=== PATIENT | female | born 1970 | race Caucasian/White ===

== ENCOUNTER → 2023-09-12 08:52 | Outpatient (REF) | payer BC, SELFPAY | LOC: HWRAD 08:52 | PROVIDERS: ATTENDING PHYSICIAN Nurse Practitioner Family | DX: R10.9 Unspecified abdominal pain (principal) | CPT/HCPCS: 74177; Q9967 ==

== ENCOUNTER → 2023-10-13 10:57 | Outpatient (REF) | payer BC, SELFPAY ==
[2023-10-13 16:02] LABS: Free T4 1.06 ng/dl (0.78-2.19)
[2023-10-13 16:16] LABS: TSH 1.55 uIU/ml (0.47-4.68)
== END ==
LOC: HWWDC 10:57
PROVIDERS: ATTENDING PHYSICIAN Obstetrics & Gynecology; FAMILY PHYSICIAN Nurse Practitioner Family; REFERRING PHYSICIAN Internal Medicine Endocrinology, Diabetes & Metabolism
DX: Z12.31 Encounter for screening mammogram for malignant neoplasm of breast (principal); E03.9 Hypothyroidism, unspecified
CPT/HCPCS: 36415; 77063; 77067; 84439; 84443

== ENCOUNTER → 2023-10-20 06:37 | Day surgery (SDC) | payer BC, SELFPAY | LOC: GI 06:37 | PROVIDERS: ATTENDING PHYSICIAN Internal Medicine Gastroenterology; FAMILY PHYSICIAN Nurse Practitioner Family | DX: R10.12 Left upper quadrant pain (principal); K22.89 Other specified disease of esophagus; K31.89 Other diseases of stomach and duodenum; K31.7 Polyp of stomach and duodenum; K29.50 Unspecified chronic gastritis without bleeding; R59.0 Localized enlarged lymph nodes | CPT/HCPCS: 43239; 88305; 88341; 88342 ==

== ENCOUNTER → 2024-01-26 07:12 | Outpatient (REF) | payer BC, SELFPAY ==
[2024-01-26 09:30] LABS: % Basophils 0.6 % (0-2); % Eosinophils 2.2 % (0-6); % Immature Granulocytes 0.6 % (0-0.5); % Lymphocytes 29.5 % (20.5-51.1); % Monocytes 10.9 % (1.7-9.3); % Neutrophils 56.2 % (42.2-75.2); Absolute Eosinophils 0.1 10^3/uL (0-0.7); Absolute Lymphocytes 1.6 10^3/uL (1.2-3.4); Absolute Monocytes 0.6 10^3/uL (0.1-0.6); Absolute Neutrophils 3.1 10^3/uL (1.4-6.5); Hematocrit 40.2 % (37.0-47.0); Hemoglobin 13.5 g/dL (12.0-16.0); Mean Corp Hgb Conc. 33.6 g/dL (33.0-37.0); Mean Corpuscular Hgb 31.3 pg (27.0-31.0); Mean Corpuscular Volume 93.1 fL (81.0-99.0); Mean Platelet Volume 9.6 fL (7.4-10.4); Nucleated Red Blood Cells % 0 %; Platelet Count 263 10^3/uL (130-400); Red Blood Cell Count 4.32 10^6/uL (4.20-5.40); Red Cell Dist. Width 12.6 % (11.5-14.5); White Blood Cell Count 5.4 10^3/uL (4.8-10.8)
[2024-01-26 09:47] LABS: ALT (SGPT) 35 U/L (0-35); AST (SGOT) 39 U/L (14-36); Albumin 4.3 g/dl (3.5-5.0); Alkaline Phosphatase 75 U/L (38-126); Blood Urea Nitrogen 18 mg/dl (7-17); Calcium 9.3 mg/dl (8.4-10.2); Carbon Dioxide 26 mmol/L (22-30); Chloride 105 mmol/L (98-107); Glucose 108 mg/dl (70-99); Potassium 4.2 mmol/L (3.5-5.1); Sodium 144 mmol/L (135-145); Total Bilirubin 0.5 mg/dl (0.2-1.3); Total Cholesterol 194 mg/dl (50-199); Total Protein 6.9 g/dl (6.3-8.2); Triglyceride 54 mg/dl (10-149); Very Low Density Lipoprotein 10 mg/dl (0-30); eGFR > 60.00
[2024-01-26 09:50] LABS: Vitamin D, 25-OH*** 38.8 ng/mL (30-80)
[2024-01-26 10:12] LABS: HDL Cholesterol 119 mg/dl; LDL Cholesterol, Calculated 65 mg/dl
== END ==
LOC: HWLAB 07:12
PROVIDERS: ATTENDING PHYSICIAN Nurse Practitioner Family
DX: Z00.00 Encounter for general adult medical examination without abnormal findings (principal); Z13.31 Encounter for screening for depression; K21.9 Gastro-esophageal reflux disease without esophagitis; E55.9 Vitamin D deficiency, unspecified; E03.9 Hypothyroidism, unspecified; R23.2 Flushing; Z23 Encounter for immunization
CPT/HCPCS: 36415; 80053; 80061; 82306; 85025

== ENCOUNTER 2024-05-03 22:44 | Emergency (ER) | payer BC, SELFPAY ==
[2024-05-03 23:04] VITALS: BP 144/84
--- NOTE | 2024-05-04 00:41 | ED.GENMED ---
History of Present Illness
<TITA Granados - Last Filed: 05/04/24 03:29>
General
Chief Complaint: Back Pain
Source: patient
Exam Limitations: none
Time Seen by Provider: 05/04/24 00:00
History of Present Illness
History of Present Illness:
This is a 53 year old female that comes in with c/o left gluteal pain into the left low back. States that this started 5 weeks ago States that she awoke on morning with this left gluteal muscle spasm. States that it was excruciating pain. States
that she took Ibuprofen and went to work. 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 States that the pain did not go down into her leg. States that she had fallen down 3 steps a month earlier. States that the pain was worse at night and better through the
day. Then Apr 08 she went to see the Orthopedic. States that she took Steroids for 5 days and the pain got worse. States that she then tried her Sisters Naproxen but she continued with pain. Then she tried her husbands muscle relaxer. States that
she also went to a Chiropractor and he adjusted her and this seemed to help some. States that the pain is now radiating into the left lower back and she can't bare weight on the left leg. States that she had on Friday night an MRI of the Lumbar
spine and the left hip but has not gotten the results until Friday at her appointment. Today she was watching TV when she felt dizzy and has this ringing in her ear. States that the pain then started and it was worse and wrapped around to the groin.
States that knwo she can't stand on the leg. States that she has felt SOB and dizzy. Denies any fever, chills, chest pain, abd pain, nausea, vomiting, diarrhea, headache, urinary burning.
Past History
<TITA Granados - Last Filed: 05/04/24 03:29>
Past History
ED Past Medical History: Other (Back pain, Sciatica, )
ED Past Surgical History: Other (Septoplasty, Varicose veins surgery, Septorhinoplasty. )
Social History
Tobacco: Former smoker
Alcohol: Occasional
Personal:
Living: with family
Employment: Employed
Review of Systems
<TITA Granados - Last Filed: 05/04/24 03:29>
Review of Systems
All Other Systems: ROS reviewed and negative except as documented in HPI and ROS
Constitutional: Reports no symptoms; Denies fever or chills
EENT: Reports no symptoms
Respiratory: Reports trouble breathing; Denies cough
Cardiac: Reports no symptoms; Denies chest pain
ABD/GI: Denies abdominal pain, nausea, vomiting or diarrhea
: Reports no symptoms; Denies dysuria, frequency or urgency
Musculoskeletal: Reports back pain (Left low back pain and gluteal pain)
Skin: Reports no symptoms
Neurological: Reports dizzy; Denies headache
Psychiatric: Reports no symptoms
Phy Exam
<TITA Granados - Last Filed: 05/04/24 03:29>
General Physical Exam
General Presentation: well appearing and no apparent distress
General age: appears stated age
General Skin: warm and dry
General Habitus: normal
General Mental: alert
General Hydration: appears well hydrated
ENT Exam
ENT Exam: TM's normal, pharynx normal and neck supple
Eye Exam
Eye Exam: EOMI
Cardiovascular Exam
Cardiovascular Exam: regular rate/rhythm, no edema, no murmur and normal peripheral pulses
Pulmonary Exam
Pulmonary Exam: lungs clear, no respiratory distress, no rales, chest non tender, no crackles, no rhonchi, no wheezing and no cough
Gastrointestinal Exam
Gastrointestinal Exam: normal bowel sounds, non tender, soft, no organomegaly, no pulsatile mass and non distended
Musculoskeletal Exam
Musculoskeletal Exam: full ROM, no edema and other (Negative for tenderness with palpation over the gluteal muscle or low back. )
Skin Exam
Skin Exam: normal color, warm/dry, no rash and no petechia
Psychiatric Exam
Psychiatric Exam: normal mood/affect
Course
<TITA Granados - Last Filed: 05/04/24 03:29>
Orders/Labs/Results
Orders:
Orders
05/04/24 00:39
Test Result ONCE
05/04/24 00:40
CT Chest/abd/pelvis Angio W/wo Urgent
Comment:
Reason For Exam: Sudden back pain left.
05/04/24 00:47
Complete Blood Count/With Diff Urgent
Comprehensive Metabolic Panel Urgent
HCG, Serum Qualitative Screen Urgent
05/04/24 00:51
Ketorolac [Toradol] 15 mg IV NOW STA
Abnormal Lab Results
05/04/24
00:47
RBC 4.18 L 10^6/uL
(4.20-5.40)
MCH 31.1 H pg
(27.0-31.0)
Monocytes % 13.0 H %
(1.7-9.3)
BUN 18 H mg/dl
(7-17)
Glucose 106 H mg/dl
(70-99)
05/04/24 00:47
05/04/24 00:47
Very slight Dehydration. Glucose nonfasting. HCG negative.
Vital Signs
Initial and Last Documented VS:
Initial Vital Signs
Temp Pulse Resp BP Pulse Ox
97.9 F 84 20 144/84 96
05/03/24 23:04 05/03/24 23:04 05/03/24 23:04 05/03/24 23:04 05/03/24 23:04
Last Documented Vital Signs
Temp Pulse Resp BP Pulse Ox
97.9 F 65 16 122/78 100
05/03/24 23:04 05/04/24 00:50 05/04/24 00:50 05/04/24 02:00 05/04/24 02:15
<Rasta Reed MD - Last Filed: 05/04/24 01:32>
Orders/Labs/Results
Orders:
Orders
05/04/24 00:39
Test Result ONCE
05/04/24 00:40
CT Chest/abd/pelvis Angio W/wo Urgent
Comment:
Reason For Exam: Sudden back pain left.
05/04/24 00:47
Complete Blood Count/With Diff Urgent
Comprehensive Metabolic Panel Urgent
HCG, Serum Qualitative Screen Urgent
05/04/24 00:51
Ketorolac [Toradol] 15 mg IV NOW STA
Abnormal Lab Results
05/04/24
00:47
RBC 4.18 L 10^6/uL
(4.20-5.40)
MCH 31.1 H pg
(27.0-31.0)
Monocytes % 13.0 H %
(1.7-9.3)
BUN 18 H mg/dl
(7-17)
Glucose 106 H mg/dl
(70-99)
05/04/24 00:47
05/04/24 00:47
Vital Signs
Initial and Last Documented VS:
Initial Vital Signs
Temp Pulse Resp BP Pulse Ox
97.9 F 84 20 144/84 96
05/03/24 23:04 05/03/24 23:04 05/03/24 23:04 05/03/24 23:04 05/03/24 23:04
Last Documented Vital Signs
Temp Pulse Resp BP Pulse Ox
97.9 F 65 16 122/78 100
05/03/24 23:04 05/04/24 00:50 05/04/24 00:50 05/04/24 02:00 05/04/24 02:15
<TITA Granados - Last Filed: 05/04/24 03:29>
MDM/Problems Addressed
Differential Diagnosis Includes:
Chronic low back pain.
MDM/Problems Addressed:
This is a 53 year old female that comes in with a 5 weeks history of Gluteal pain and low back pain. Tonight she started with dizziness, ringing in her ears and the pain increased.
Will check labs, CTA chest/abd/pelvis. Patient was seen by Dr. Reed
BACK INTO SEE PATIENT. Explained that the CTA is negative for any acute process. Patient has been able to get up to the bathroom when here. Will have patient follow up with the her physician to get the MRI results. Will give patient a prescription
for Naproxen and discharge home.
Chronic conditions affecting care:
Back pain, Sciatica
Acute Exacerbation and/or Progression of Chronic Illness:
NA
<TITA Granados - Last Filed: 05/04/24 03:29>
*Radiology
Radiology exam reviewed: radiology read reviewed (CT night hawk- No aortic aneurysm or dissection. NO central pulmonary embolus. The great vessels are widely patent. The mesenteric vessels are widely patent. Chest-NO acute intrathoracic
abnormalities. Lungs are clear. Mediastinal and cardiac structures are unremarkable. No acute osseous abnormaliti) and other (CT cont- abd/pelvis No acute intra-abdominal pathology. No bowel obstruction or inflammation. Appendix is normal. NO
hydronephrosis or nephrolithiasis. No free air or free fluid. )
*Pulse Oximetry
Patient hypoxic: no
*EKG
Interpreted by ED Provider?: NA
Rate: EKG- N/A
*Reconditioner Interpretation
Rate: Reconditioner- N/A
*Critical Care Note
Total Time (30-74mins, 75-104mins- exclusive of procedures): Not Applicable
ED Attending Note
<TITA Granados - Last Filed: 05/04/24 03:29>
-
Portions of this chart may have been created with voice recognition software.� Occasional wrong word or��sound alike� substitutions may have occurred due to the inherent limitations of voice recognition software.
<Rasta Reed MD - Last Filed: 05/04/24 01:32>
ED Attending Note
Patient seen and examined by attending physician: Yes
I performed the substantive portion of visit, reviewed & personally made and approve the management plan that is documented in note by myself or ELVIN.: Yes
ED Attending Note:
50-50 3-year-old female with ongoing left gluteal pain radiating across lower back pain. Has been there for 5 to weeks. Some increased pain recently. Had an MRI done days ago. Today had some increased pain with shooting symptoms to her
ears/ringing in her ears and distorted vision. Symptoms are back to baseline at this time. No bowel or bladder issues no fever no abdominal pain
On exam patient is nontoxic in no distress. Warm and dry. Perfusing well. Abdomen is soft and nontender. Good femoral pulses bilaterally. No pain with hip rotation. No gluteal swelling or point tenderness. Mild buttock pain with straight leg
raising but no true sciatic pain. Good distal pulses and color. Capillary refill good. No spinal tenderness. Patient is able to stand and ambulate relatively well.
Low suspicion for nonorthopedic explanation for these ongoing symptoms. From an orthopedic standpoint MRIs were done already pending results. We will not give a more definitive diagnosis orthopedically. However, although unlikely, vascular issue
has to be considered. Will get CT angios of all negative reassurance and orthopedic follow-up.
Discharge Plan
Departure
Patient Disposition: Home (Routine Discharge)
Date of Disposition: 05/04/24
Time of Disposition: 03:24
Patient with high blood pressure during this ER visit?: No
Condition: Good
Covid-19: Not Applicable
Discharge Problem:
Dizziness, Gluteal pain
Instructions: Active Range of Motion Exercises, Back and Hips, Dizziness
Prescriptions:
New
naproxen 500 mg tablet
500 mg PO BID PRN (Reason: Pain) Qty: 10 0RF
Referrals:
Pedro Guidry CRNP [Family Provider] - Follow up in 2-3 days
Activity Restrictions/Additional Instructions:
As discussed, your blood work is normal along with the CT angio of the chest, abd/pelvis. Please follow up with your doctor for the MRI report. You have had a prescription for Naproxen sent to your Pharmacy. Please take this with food. IF YOU HAVE
ANY OTHER CONCERNS PLEASE RETURN TO THE EMERGENCY ROOM.
Interventions
Interventions:
*Risk Screen - Suicide Last Done: 05/03/24 23:04
*General Assessment Last Done: 05/04/24 00:47
*Neglect/Abuse Screening Last Done: 05/03/24 23:04
ED- Fall Risk Assessment Last Done: 05/04/24 00:47
*ED COVID-19 Vaccine History Last Done: 05/04/24 00:47
ED-Musculoskeletal Assessment Last Done: 05/04/24 01:01
Discharge Date and Time
Print Language: GREEK
[2024-05-04 00:47] VITALS: BMI 22.2
[2024-05-04 00:49] VITALS: BP 120/74
[2024-05-04] MEDS: TORADOL 15 MG IV (00:53)
[2024-05-04 01:00] VITALS: BP 123/83
[2024-05-04 01:09] LABS: % Basophils 0.4 % (0-2); % Eosinophils 0.8 % (0-6); % Immature Granulocytes 0.4 % (0-0.5); % Lymphocytes 29.1 % (20.5-51.1); % Neutrophils 56.3 % (42.2-75.2); Absolute Lymphocytes 1.4 10^3/uL (1.2-3.4); Absolute Monocytes 0.6 10^3/uL (0.1-0.6); Absolute Neutrophils 2.7 10^3/uL (1.4-6.5); Hematocrit 37.4 % (37.0-47.0); Mean Corp Hgb Conc. 34.8 g/dL (33.0-37.0); Mean Corpuscular Hgb 31.1 pg (27.0-31.0); Mean Corpuscular Volume 89.5 fL (81.0-99.0); Mean Platelet Volume 8.7 fL (7.4-10.4); Nucleated Red Blood Cells % 0 %; Platelet Count 257 10^3/uL (130-400); Red Blood Cell Count 4.18 10^6/uL (4.20-5.40); Red Cell Dist. Width 12.3 % (11.5-14.5); White Blood Cell Count 4.8 10^3/uL (4.8-10.8)
[2024-05-04 01:12] LABS: HCG, Serum Qualitative Screen Negative
[2024-05-04 01:22] LABS: ALT (SGPT) 23 U/L (0-35); AST (SGOT) 32 U/L (14-36); Albumin 4.6 g/dl (3.5-5.0); Alkaline Phosphatase 55 U/L (38-126); Blood Urea Nitrogen 18 mg/dl (7-17); Calcium 9.5 mg/dl (8.4-10.2); Carbon Dioxide 24 mmol/L (22-30); Chloride 104 mmol/L (98-107); Estimated Creatinine Clearance 89 ml/min; Glucose 106 mg/dl (70-99); Potassium 3.9 mmol/L (3.5-5.1); Sodium 137 mmol/L (135-145); Total Bilirubin 0.6 mg/dl (0.2-1.3); Total Protein 7.1 g/dl (6.3-8.2); eGFR > 60.00
[2024-05-04 02:00] VITALS: BP 122/78
[2024-05-04 03:07] VITALS: BP 117/71
== END 2024-05-04 03:40 | disposition home or self-care (01) ==
LOC: EMR 22:44
PROVIDERS: Clinical Nurse Specialist Family Health; EMERGENCY PHYSICIAN Emergency Medicine; FAMILY PHYSICIAN Nurse Practitioner Family
DX: M79.18 Myalgia, other site (principal); R42 Dizziness and giddiness; Z87.891 Personal history of nicotine dependence; M54.40 Lumbago with sciatica, unspecified side
CPT/HCPCS: 96374; 99284; 71275; 74174; 80053; 84703; 85025; Q9967

== ENCOUNTER 2024-06-25 11:05 | Emergency (ER) | payer BC, SELFPAY ==
[2024-06-25 11:07] VITALS: BP 123/91
--- NOTE | 2024-06-25 12:36 | ED.GENMED ---
History of Present Illness
General
Chief Complaint: Back Pain
Source: patient
Time Seen by Provider: 06/25/24 12:01
History of Present Illness
History of Present Illness:
53-year-old female with past medical history of L5-S1 disc herniation from March 2024 presenting to the emergency department for increased pain, paresthesia/numbness over the last week. Patient states that in March she fell causing some mild
discomfort in her back and then few days later was in a gym class and felt sudden pain radiate down her left leg with symptoms worsening prompting her to go to the orthopedist. Patient was given a Medrol Dosepak at that time, had an MRI done in
late April which showed the L5-S1 disc herniation, had an epidural done at the beginning of May and had some mild symptom improvement. Patient states earlier this week she was getting up from the toilet when she felt the sudden pain go down
her left leg again and states she has had symptoms reminiscent of when the symptoms first started. Patient went back to her orthopedic doctor who plan to repeat imaging and evaluate the patient again in the office at the beginning of the week next
week but patient noted increased numbness sensation in the back of her leg and the vaginal area which seem to be worse at nighttime when laying flat or with attempted movement and now notes when she ambulates she does so with a limp. Patient denies
any bladder or bowel incontinence or sensation of incomplete emptying of her bladder, fevers or infectious symptoms, new falls or traumatic injuries, history of substance use, history of diabetes or cancer or any other concerns.
Past History
Past History
ED Past Medical History: Other (Back pain, Sciatica, )
ED Past Surgical History: Other (Septoplasty, Varicose veins surgery, Septorhinoplasty. )
Social History
Tobacco: Former smoker
Alcohol: Occasional
Drug: None
Personal:
Living: with family
Employment: Employed
Review of Systems
Review of Systems
All Other Systems: ROS reviewed and negative except as documented in HPI and ROS
Phy Exam
Physical Exam
Physical Exam:
GENERAL: Alert , in no apparent distress at rest but does have discomfort with movement
EYE: clear conjunctiva b/l
NECK: Supple
ENT: mmm.
BACK: Normal range of motion, mild left sacroiliac ttp extending into left buttock, no midline bony tenderness, no rashes
NEUROLOGICAL: Alert and oriented, no focal neuro deficits. Patellar deep tendon reflexes intact and equal bilaterally, sensation diminished along lateral thigh and lateral foot on the left, intact and equal on left lower leg. (+)SLR on left
SKIN: Warm and dry, skin intact.
MUSCULOSKELETAL: No edema, well perfused. EHL intact bilaterally
PSYCH: Normal and appropriate interaction.
Scores
Heart Failure Risk
Heart Failure Risk Score: Not Applicable
Heart Score for Chest Pain Patients
STEMI patient?: Not applicable
Withdrawal Assessment of Alcohol
Withdrawal Assessment Completed?: Not applicable
Course
Orders/Labs/Results
Orders:
Orders
06/25/24 12:27
Bladder Scan- Treatment ONCE
06/25/24 12:46
Urinalysis Reflex To Culture Urgent
Date Specimen was Collected: 06/25/24
Time Specimen was Collected: 12:33
Urine Microscopic Reflex Cult Urgent
Abnormal Lab Results
06/25/24
12:46
Urine Ketones 1+ A
(Negative)
Ur Occult Blood Reflex 1+ A
(Negative)
Vital Signs
Initial and Last Documented VS:
Initial Vital Signs
Temp Pulse Resp BP Pulse Ox
98 F 105 16 123/91 98
06/25/24 11:07 06/25/24 11:07 06/25/24 11:07 06/25/24 11:07 06/25/24 11:07
Last Documented Vital Signs
Temp Pulse Resp BP Pulse Ox
98 F 105 16 123/91 98
06/25/24 11:07 06/25/24 11:07 06/25/24 11:07 06/25/24 11:07 06/25/24 11:07
Credit Balance Specialist consulted with Physician
Credit Balance Specialist consulted with physician?: Yes
Name of Physician Consulted: Candelario
MDM/Problems Addressed
Differential Diagnosis Includes:
lumbar disc herniation exacerbation, cauda equina, lumbar strain, sciatica, no symptoms to suggest infectious etiology
MDM/Problems Addressed:
53-year-old female presenting to the emergency department with known disc herniation at L5 and S1, progressive symptoms that had been slightly improved following a epidural in May. Patient does have decreased sensation on the lateral aspect of
her leg. She does have an appointment scheduled with orthopedics for this coming Friday. Unsure if going to be able to obtain a emergent MRI today. Unlikely to change patient's plan. Will check bladder scan. Will discuss with [facility]
as patient is following with them. Disposition pending
*Pulse Oximetry
Patient hypoxic: no
*Critical Care Note
Total Time (30-74mins, 75-104mins- exclusive of procedures): Not Applicable
Data Reviewed
Review of Other/Old Records Reveals: Records and Radiology Studies
Patient Management
Discussion with other providers: Language Specialist
Escalation/DeEscalation of care consider admission/obs:
Bladder scan with 80mL PVR. Notified patients back specialist, Dr. Ornelas, via tiger text who is in agreement with ED workup. will follow up with patient next week as scheduled. Patient stable for d/c home. Aware of return precautions
ED Attending Note
-
Portions of this chart may have been created with voice recognition software.� Occasional wrong word or��sound alike� substitutions may have occurred due to the inherent limitations of voice recognition software.
Discharge Plan
Departure
Patient Disposition: Home (Routine Discharge)
Date of Disposition: 06/25/24
Time of Disposition: 13:17
Patient with high blood pressure during this ER visit?: No
Discharge Problem:
Acute lumbar radiculopathy
Instructions: Radiculopathy (DC)
Prescriptions:
No Action
naproxen 500 mg tablet
500 mg PO BID PRN (Reason: Pain) Qty: 10 0RF
Referrals:
Jason Ornelas, DO [Non-Admitting Privileges] -
Pedro Guidry CRNP [Family Provider] -
Interventions
Interventions:
*Risk Screen - Suicide Last Done: 06/25/24 11:07
*General Assessment Last Done: 06/25/24 12:50
*Neglect/Abuse Screening Last Done: 06/25/24 11:07
*ED- Fall Risk Assessment Last Done: 06/25/24 12:50
*Nursing Disposition Last Done: 06/25/24 13:30
ED-Musculoskeletal Assessment Last Done: 06/25/24 12:50
Discharge Date and Time
Discharge Date/Time: 06/25/24 13:31
Print Language: CHADIAN
[2024-06-25 12:49] VITALS: BMI 20.1
[2024-06-25 13:11] LABS: Urine Albumin Negative (Neg - Trace); Urine Bilirubin Negative (Negative); Urine Character Clear (Clear); Urine Color Yellow; Urine Glucose Negative (Negative); Urine Ketone 1+ (Negative); Urine Leukocyte Negative (Negative); Urine Nitrite Negative (Negative); Urine Occult Blood 1+ (Negative); Urine Urobilinogen Negative (Neg - 1+)
[2024-06-25 14:08] LABS: Urine Amorphous Seen; Urine Red Blood Cell 0-2 /HPF (0-2); Urine Urothelial Cell 0-2 /LPF (FEW); Urine White Cell 0-2 /HPF (0-5)
== END 2024-06-25 13:31 | disposition home or self-care (01) ==
LOC: EMR 11:05
PROVIDERS: Physician Assistant Medical; EMERGENCY PHYSICIAN Student in an Organized Health Care Education/Training Program; FAMILY PHYSICIAN Nurse Practitioner Family
DX: M54.16 Radiculopathy, lumbar region (principal); Z87.891 Personal history of nicotine dependence
CPT/HCPCS: 99282; 81003; 81015

== ENCOUNTER → 2024-10-11 13:04 | Outpatient (REF) | payer BC, SELFPAY ==
[2024-10-11 15:55] LABS: Free T4 1.08 ng/dl (0.78-2.19)
[2024-10-11 16:09] LABS: TSH 1.48 uIU/ml (0.47-4.68)
== END ==
LOC: HWLAB 13:04
PROVIDERS: ATTENDING PHYSICIAN Internal Medicine Endocrinology, Diabetes & Metabolism; FAMILY PHYSICIAN Nurse Practitioner Family
DX: E03.9 Hypothyroidism, unspecified (principal)
CPT/HCPCS: 36415; 84439; 84443

== ENCOUNTER → 2024-11-05 11:26 | Outpatient (REF) | payer BC, SELFPAY | LOC: HWWDC 11:26 | PROVIDERS: ATTENDING PHYSICIAN Obstetrics & Gynecology; FAMILY PHYSICIAN Nurse Practitioner Family | DX: Z12.31 Encounter for screening mammogram for malignant neoplasm of breast (principal) | CPT/HCPCS: 77063; 77067 ==

== ENCOUNTER → 2024-11-11 08:33 | Outpatient (REF) | payer BC, SELFPAY | LOC: WDC 08:33 | PROVIDERS: ATTENDING PHYSICIAN Obstetrics & Gynecology; FAMILY PHYSICIAN Nurse Practitioner Family | DX: R92.8 Other abnormal and inconclusive findings on diagnostic imaging of breast (principal) | CPT/HCPCS: 76642 ==

== ENCOUNTER → 2024-12-31 10:57 | Outpatient (REF) | payer BC, SELFPAY | LOC: HWLAB 10:57 | PROVIDERS: ATTENDING PHYSICIAN Nurse Practitioner Family | DX: M54.2 Cervicalgia (principal); M25.511 Pain in right shoulder; M25.512 Pain in left shoulder; Z00.00 Encounter for general adult medical examination without abnormal findings; Z13.31 Encounter for screening for depression; K21.9 Gastro-esophageal reflux disease without esophagitis; E55.9 Vitamin D deficiency, unspecified; E03.9 Hypothyroidism, unspecified; R23.2 Flushing; M54.50 Low back pain, unspecified | CPT/HCPCS: 36415; 72050; 73030; 86618 ==

== ENCOUNTER → 2025-01-07 08:42 | Outpatient (REF) | payer BC, SELFPAY ==
[2025-01-07 11:59] LABS: Hematocrit 40.1 % (37.0-47.0); Hemoglobin 13.3 g/dL (12.0-16.0); Mean Corp Hgb Conc. 33.2 g/dL (33.0-37.0); Mean Corpuscular Volume 90.9 fL (81.0-99.0); Nucleated Red Blood Cells % 0 %; Platelet Count 230 10^3/uL (130-400); Red Cell Dist. Width 12.3 % (11.5-14.5)
[2025-01-07 12:04] LABS: ALT (SGPT) 29 U/L (0-35); AST (SGOT) 29 U/L (14-36); Albumin 4.5 g/dl (3.5-5.0); Alkaline Phosphatase 48 U/L (38-126); Blood Urea Nitrogen 13 mg/dl (7-17); Calcium 9.6 mg/dl (8.4-10.2); Carbon Dioxide 28 mmol/L (22-30); Chloride 106 mmol/L (98-107); Glucose 91 mg/dl (70-99); Potassium 4.2 mmol/L (3.5-5.1); Sodium 139 mmol/L (135-145); Total Protein 7.1 g/dl (6.3-8.2); Very Low Density Lipoprotein 9 mg/dl (0-30); eGFR > 60.00
[2025-01-07 12:15] LABS: HDL Cholesterol 113 mg/dl; LDL Cholesterol, Calculated 87 mg/dl
[2025-01-07 12:23] LABS: Vitamin D, 25-OH*** 38.6 ng/mL (30-80)
== END ==
LOC: HWLAB 08:42
PROVIDERS: ATTENDING PHYSICIAN Nurse Practitioner Family
DX: Z00.00 Encounter for general adult medical examination without abnormal findings (principal); Z13.31 Encounter for screening for depression; K21.9 Gastro-esophageal reflux disease without esophagitis; E55.9 Vitamin D deficiency, unspecified; E03.9 Hypothyroidism, unspecified; R23.2 Flushing
CPT/HCPCS: 36415; 80053; 80061; 82306; 84443; 85025